=== PATIENT | female | born 1950 | race Hispanic/Latino ===

== ENCOUNTER 2017-03-06 16:37 | Emergency (ER) | payer MEDICARE, OTHER ==
[~2017-03-06] VITALS: Ht 154.9 cm; Wt 81.6 kg
[~2017-03-06 16:37] MED LIST: LANTUS100 UNITS/ SQ; LEVOTHYROXINE50 MCG PO; METFORMIN HCL500 MG PO
[2017-03-06] MEDS ORDERED: ACETAMINOPHEN 325 MG TAB PO ONE (18:00)
--- NOTE | 2017-03-06 18:53 | Diagnostic Imaging Report ---
History:Fall Comparison studies:None Technique: Axial images were obtained from the skull base to the vertex. Coronal and sagittal images reconstructed from the axial data. Intravenous contrast: None Findings: Scalp/skull: No abnormalities. Extra-axial spaces: No masses. No fluid collections. Brain sulci: Mildly prominent. Ventricles: Mild compensatory dilatation. No hydrocephalus. Parenchyma: Few hypodensities in the supratentorial white matter are small vessel ischemic changes. No masses, hemorrhage, acute or chronic cortical vascular insults. Sellar/suprasellar region: No abnormalities. Craniocervical junction: Patent foramen magnum. No Chiari one malformation. Incidental findings: Atherosclerotic calcifications in the carotid siphons . Impression: No acute abnormalities. Chronic findings: 1. Mild generalized volume loss. 2. Mild supratentorial white matter small vessel ischemic changes. Signed by: DR Martinez Garcia M.D. on 03/06/2017 6:50 PM
--- NOTE | 2017-03-06 18:58 | Diagnostic Imaging Report ---
History:Fall Comparison studies: None Technique: Axial images were obtained through the maxillofacial region. Coronal and sagittal images reconstructed from the axial data. Intravenous contrast: None Findings: Soft tissues: No abnormalities. Bones: No fractures or bone abnormalities. Orbits: Globes: Intact Extra or intraconal abnormalities: None. Paranasal sinuses: Clear No dentition in the maxilla. Periapical lucency at dentition 21 and 22. IMPRESSION: 1. No acute abnormality Signed by: DR Martinez Garcia M.D. on 03/06/2017 6:55 PM
--- NOTE | 2017-03-06 19:02 | Diagnostic Imaging Report ---
History: Fall Comparison studies: None Technique: Axial images were obtained through the cervical region. Coronal and sagittal images reconstructed from the axial data. Intravenous contrast: None Findings: Atlantoaxial articulation: Intact Alignment: Normal lordosis No scoliosis. Cervicomedullary junction: No abnormalities. Patent foramen magnum. Soft tissues: No gross abnormalities. Vertebrae: No fractures, neoplasm or infection. Degenerative changes: Disc degeneration from C5-7. Facet and uncinate process hypertrophy result in mild multilevel foraminal narrowing. IMPRESSION: 1. No acute cervical abnormality. 2. Cannot exclude ligament, spinal cord and or vascular abnormalities on the basis of this examination. Signed by: DR Martinez Garcia M.D. on 03/06/2017 6:58 PM
--- NOTE | 2017-03-06 19:41 | Diagnostic Imaging Report ---
KNEE RIGHT THREE VIEWS KNEE LEFT THREE VIEWS HISTORY: Knee pain status post fall COMPARISON: None FINDINGS: Bones: No displaced fracture. Osseous alignment is within normal limits. Joints: The joint spaces are well-maintained. Soft tissues: The soft tissues appear unremarkable. IMPRESSION: No acute radiographic abnormality. Signed by: Dr. Alfa Patel M.D. on 03/06/2017 7:37 PM
--- NOTE | 2017-03-06 19:49 | Diagnostic Imaging Report ---
RIBS UNILAT W/CXR HISTORY: Left rib pain status post fall COMPARISON: None FINDINGS: Bones: No displaced fracture. Osseous alignment is within normal limits. Joints: The joint spaces are well-maintained. Soft tissues: The soft tissues appear unremarkable. IMPRESSION: No acute radiographic abnormality. Signed by: Dr. Alfa Patel M.D. on 03/06/2017 7:45 PM
== END 2017-03-06 21:02 | disposition home or self-care (01) ==
LOC: ER 16:37
DX: S00.532A Contusion of oral cavity, initial encounter (principal); S00.83XA Contusion of other part of head, initial encounter; S20.212A Contusion of left front wall of thorax, initial encounter; S80.02XA Contusion of left knee, initial encounter; S80.01XA Contusion of right knee, initial encounter; W01.0XXA Fall on same level from slipping, tripping and stumbling without subsequent striking against object, initial encounter; Y92.481 Parking lot as the place of occurrence of the external cause; I10 Essential (primary) hypertension; E11.9 Type 2 diabetes mellitus without complications; E03.9 Hypothyroidism, unspecified
CPT/HCPCS: 70450; 70486; 71101; 72125; 99283

== ENCOUNTER 2018-01-06 20:24 | Emergency (ER) | payer MEDICARE ==
[~2018-01-06] VITALS: Ht 154.9 cm; Wt 81.6 kg
--- OUTSIDE RECORDS SUMMARY | 2018-01-06 20:26 | XMS REPORT ---
Author Author [facility] Address Unknown Phone Unavailable Care Team Providers Care Chain Saw Operator Name Role Phone Lynn POSEY Unavailable Unavailable Problems This patient has no known problems. Allergies, Adverse Reactions, Alerts This patient has no known allergies or adverse reactions. Medications This patient has no known medications. Encounters Start Date/Time End Date/Time Encounter Type Admission Type Attending Clinicians Care Facility Care Department Encounter ID 2017-11-08 12:41:24 2017-11-08 12:41:24 Outpatient [facility] [id number] 2017-11-08 10:23:27 2017-11-08 10:23:27 Outpatient [facility] [id number] 2017-08-11 08:26:29 2017-08-11 08:26:29 Outpatient [facility] [id number] 2017-07-22 00:00:00 2017-07-22 00:00:00 Outpatient [facility] [id number] 2017-07-16 11:36:36 2017-07-16 11:36:36 Outpatient [facility] [id number] 2017-07-16 09:47:55 2017-07-16 09:47:55 Outpatient [facility] [id number] 2017-06-18 09:40:37 2017-06-18 09:40:37 Outpatient [facility] [id number] 2017-05-26 15:28:08 2017-05-26 15:28:08 Outpatient [facility] [id number] 2017-04-20 14:10:58 2017-04-20 14:10:58 Outpatient [facility] [id number] 2017-04-20 09:51:03 2017-04-20 09:51:03 Outpatient [facility] [id number] 2017-04-12 09:22:48 2017-04-12 09:22:48 Outpatient [facility] [id number] 2017-03-22 00:00:00 2017-03-22 00:00:00 Outpatient [facility] [id number] 2017-02-18 09:30:12 2017-02-18 09:30:12 Outpatient [facility] [id number] 2017-02-16 10:10:56 2017-02-16 10:10:56 Outpatient [facility] [id number] 2016-12-11 09:37:19 2016-12-11 09:37:19 Outpatient [facility] [id number] 2016-11-13 14:43:13 2016-11-13 14:43:13 Outpatient [facility] [id number] 2016-09-28 15:51:36 2016-09-28 15:51:36 Outpatient [facility] [id number] Results Test Description Test Time Test Comments Text Results Atomic Results Result Comments CT CERVICAL SPINE WO [place] [address] Patient Name: JOS AYALA MR #: [id number] : 1950 Age/Sex: 67/F Req #: [id number] Adm Physician: Ordered by: SHANT TIM Report #: [id number] Location: ER Room/Bed: Procedure: [id number] CT/CT CERVICAL SPINE WO Exam Date: 03/06/17 Exam Time: 1843 REPORT STATUS: Signed History: Fall Comparison studies: None Technique: Axial images were obtained through the cervical region. Coronal and sagittal images reconstructed from the axial data. Intravenous contrast: None Findings: Atlantoaxial articulation: Intact Alignment: Normal lordosis No scoliosis. Cervicomedullary junction: No abnormalities. Patent foramen magnum. Soft tissues: No gross abnormalities. Vertebrae: No fractures, neoplasm or infection. Degenerative changes: Disc degeneration from C5-7. Facet and uncinate process hypertrophy result in mild multilevel foraminal narrowing. IMPRESSION: 1. No acute cervical abnormality. 2. Cannot exclude ligament, spinal cord and or vascular abnormalities on the basis of this examination. Signed by: DR Martinez Garcia M.D. on 03/06/2017 6:58 PM Dictated By: MARTINEZ HANKS MD 57 Transcribed By: TROY on 03/06/171857 COPY TO: SHANT TIM CT BRAIN WO [place] [address] Patient Name: JOS AYALA MR #: [id number] : 1950 Age/Sex: 67/F Req #: [id number] Adm Physician: Ordered by: SHANT TIM Report #: [id number] Location: ER Room/Bed: Procedure: [id number] CT/CT BRAIN WO Exam Date: 03/06/17 Exam Time: 1843 REPORT STATUS: Signed History:Fall Comparison studies:None Technique: Axial images were obtained from the skull base to the vertex. Coronal and sagittal images reconstructed from the axial data. Intravenous contrast: None Findings: Scalp/skull: No abnormalities. Extra-axial spaces: No masses. No fluid collections. Brain sulci: Mildly prominent. Ventricles: Mild compensatory dilatation. No hydrocephalus. Parenchyma: Few hypodensities in the supratentorial white matter are small vessel ischemic changes. No masses, hemorrhage, acute or chronic cortical vascular insults. Sellar/suprasellar region: No abnormalities. Craniocervical junction: Patent foramen magnum. No Chiari one malformation. Incidental findings: Atherosclerotic calcifications in the carotid siphons . Impression: No acute abnormalities. Chronic findings: 1. Mild generalized volume loss. 2. Mild supratentorial white matter small vessel ischemic changes. Signed by: DR Martinez Garcia M.D. on 03/06/2017 6:50 PM Dictated By: MARTINEZ HANKS MD 49 Transcribed By: TROY on 03/06/171849 COPY TO: SHANT TIM CT MAXIO FAC/PARANAS WO [place] [address] Patient Name: JOS AYALA MR #: [id number] : 1950 Age/Sex: 67/F Req #: [id number] Adm Physician: Ordered by: SHANT TIM Report #: [id number] Location: ER Room/Bed: Procedure: [id number] CT/CT MAXIO FAC/PARANAS WO Exam Date: 03/06/17 Exam Time: 1843 REPORT STATUS: Signed History:Fall Comparison studies: None Technique: Axial images were obtained through the maxillofacial region. Coronal and sagittal images reconstructed from the axial data. Intravenous contrast: None Findings: Soft tissues: No abnormalities. Bones: No fractures or bone abnormalities. Orbits: Globes: Intact Extra or intraconal abnormalities: None. Paranasal sinuses: Clear No dentition in the maxilla. Periapical lucency at dentition 21 and 22. IMPRESSION: 1. No acute abnormality Signed by: DR Martinez Garcia M.D. on 03/06/2017 6:55 PM Dictated By: MARTINEZ HANKS MD 54 Transcribed By: TROY on 03/06/171854 COPY TO: SHANT TIM KNEE LEFT THREE VIEWS [place] [id number] [place] [address] Patient Name: JOS AYALA MR #: [id number] : 1950 Age/Sex: 67/F Req #: [id number] Adm Physician: Ordered by: SHANT TIM Report #: [id number] Location: ER Room/Bed: Procedure: [id number] DX/KNEE LEFT THREE VIEWS Exam Date: 03/06/17 Exam Time: 1849 REPORT STATUS: Signed KNEE RIGHT THREE VIEWS KNEE LEFT THREE VIEWS HISTORY: Knee pain status post fall COMPARISON: None FINDINGS: Bones: No displaced fracture. Osseous alignment is within normal limits. Joints: The joint spaces are well-maintained. Soft tissues: The soft tissues appear unremarkable. IMPRESSION: No acute radiographic abnormality. Signed by: Dr. Alfa Patel M.D. on 03/06/2017 7:37 PM Dictated By: ALFA SRINIVASAN MD 36 Transcribed By: TROY on 03/06/171936 COPY TO: SHANT TIM KNEE RIGHT THREE VIEWS [place] [address] Patient Name: JOS AYALA MR #: [id number] : 1950 Age/Sex: 67/F Req #: [id number] Adm Physician: Ordered by: SHANT TIM Report #: [id number] Location: ER Room/Bed: Procedure: [id number] DX/KNEE RIGHT THREE VIEWS Exam Date: 03/06/17 Exam Time: 1850 REPORT STATUS: Signed KNEE RIGHT THREE VIEWS KNEE LEFT THREE VIEWS HISTORY: Knee pain status post fall COMPARISON: None FINDINGS: Bones: No displaced fracture. Osseous alignment is within normal limits. Joints: The joint spaces are well-maintained. Soft tissues: The soft tissues appear unremarkable. IMPRESSION: No acute radiographic abnormality. Signed by: Dr. Alfa Patel M.D. on 03/06/2017 7:37 PM Dictated By: ALFA SRINIVASAN MD 36 Transcribed By: TROY on 03/06/171936 COPY TO: SHANT TIM W/CXR [place] [address] Patient Name: JOS AYALA MR #: [id number] : 1950 Age/Sex: 67/F Req #: [id number] Adm Physician: Ordered by: SHANT TIM Report #: [id number] Location: ER Room/Bed: Procedure: [id number] DX/RIBS UNILAT W/CXR Exam Date: 03/06/17 Exam Time: 1850 REPORT STATUS: Signed RIBS UNILAT W/CXR HISTORY: Left rib pain status post fall COMPARISON: None FINDINGS: Bones: No displaced fracture. Osseous alignment is within normal limits. Joints: The joint spaces are well-maintained. Soft tissues: The soft tissues appear unremarkable. IMPRESSION: No acute radiographic abnormality. Signed by: Dr. Alfa Patel M.D. on 03/06/2017 7:45 PM Dictated By: ALFA SRINIVASAN MD 44 Transcribed By: TROY on 03/06/171944 COPY TO: SHANT TIM
--- NOTE | 2018-01-06 21:58 | Diagnostic Imaging Report ---
EXAMINATION: Head CT without contrast. HISTORY:Headache. COMPARISON:CT brain from 03/06/2017. TECHNIQUE: Multidetector axial images were obtained from the foramen magnum to the vertex without contrast. The images were reconstructed using brain and bone algorithms. Thin section brain images were reformatted into coronal and sagittal planes. Dose modulation, iterative reconstruction, and/or weight based adjustment of the mA/kV was utilized to reduce the radiation dose to as low as reasonably achievable. Intravenous contrast: None IMAGE QUALITY: Acceptable. FINDINGS: Skull/scalp: No lytic or blastic. lesions. No surgical changes. Parenchyma: Nonspecific few, scattered supratentorial white matter hypodensity are likely related to small vessel ischemic changes. No acute hemorrhage, mass or acute major vascular territorial infarct. Arteries: No density suggestive of thrombosis. Mild atherosclerotic calcification in bilateral carotid siphon. Dural sinuses: No abnormal density suggestive of thrombosis. Ventricles: No hydrocephalus or displacement. Extra-axial spaces: No abnormal density. Brain volume: Mild generalized cerebral volume loss. Craniocervical junction: No mass, Chiari malformation, or basilar invagination. Sella: No mass. Paranasal/mastoid sinuses: Imaged portions unremarkable. IMPRESSION: No acute intracranial abnormality. No change since CT brain from 03/06/2017. Chronic findings: 1. Mild supratentorial white matter microvascular ischemic changes. 2. Mild generalized cerebral volume loss. Signed by: Dr. Clotilde Castellanos M.D. on 01/06/2018 9:55 PM
--- NOTE | 2018-01-06 22:03 | Diagnostic Imaging Report ---
History: Neck pain. Comparison studies: CT cervical spine from 03/06/2017. Technique: Axial images were obtained through the cervical region.. Coronal and sagittal images reconstructed from the axial data. Dose modulation, iterative reconstruction, and/or weight based adjustment of the mA/kV was utilized to reduce the radiation dose to as low as reasonably achievable. Intravenous contrast: None Findings: Fractures: None. Soft tissue injuries: None. Atlantoaxial articulation: Intact. Alignment: Loss of normal cervical lordosis is either positional or due to muscle spasm. No scoliosis. 2 mm grade 1 retrolisthesis at C5-C6, is likely degenerative. Cervicomedullary junction: No abnormalities. The foramen magnum is patent. Soft tissues: No abnormalities. Vertebrae: No fractures, infection or neoplasm. Degenerative changes: C3-C4: Mild degenerative disc disease. Mild left foraminal stenosis due to facet and uncovertebral arthrosis. C4-C5: Posterior disc osteophyte complex results in mild canal stenosis. Mild left foraminal stenosis due to facet and uncovertebral arthrosis. C5-C6: Moderate degenerative disc disease. Posterior disc osteophyte complex results in mild canal stenosis. Mild bilateral foraminal stenosis due to facet and uncovertebral arthrosis.. IMPRESSION: 1. No acute cervical spine fracture. Loss of normal cervical lordosis is either positional or due to muscle spasm. 2. Ligament, spinal cord and or vascular abnormalities cannot be excluded on the basis of this examination. 3. Cervical spondylosis as detailed above. Signed by: Dr. Clotilde Castellanos M.D. on 01/06/2018 10:00 PM
== END 2018-01-06 22:43 | disposition home or self-care (01) ==
LOC: ER 20:24
DX: M54.2 Cervicalgia (principal); S16.1XXA Strain of muscle, fascia and tendon at neck level, initial encounter; I10 Essential (primary) hypertension; E11.9 Type 2 diabetes mellitus without complications; E78.5 Hyperlipidemia, unspecified; G89.29 Other chronic pain
CPT/HCPCS: 70450; 72125; 99283

== ENCOUNTER 2018-10-31 13:12 | Emergency (ER) | payer MEDICARE ==
[~2018-10-31] VITALS: Ht 154.9 cm; Wt 81.6 kg
--- OUTSIDE RECORDS SUMMARY | 2018-10-31 13:17 | XMS REPORT | Clinical Summary ---
Author Author [facility] Organization [facility] Address Unknown Phone Unavailable Care Team Providers Care Campaign Worker Name Role Phone Nelia Manley MD PCP Allergies No Known Allergies Medications End Date Status Medication Sig Dispensed Refills Start Date Active nitroGLYCERIN (NITROSTAT) Dissolve 1 25 tablet 3 0.4 mg sublingual tablet under 5 tabletIndications: HTN the tongue (hypertension), benign every 5 minutes as needed, up to 3 times. If chest pain persists, call 911. Active blood glucose by 1 Kit 0 meterIndications: MISCELLANEOUS 7 Uncontrolled type 2 route 2 times diabetes mellitus without weekly Use as complication, with directed.-one long-term current use of touch verio insulin glucometer. Active mometasone (NASONEX) 50 2 Sprays by 17 g 2 mcg/actuation nasal each nostril 7 sprayIndications: Upper route daily. respiratory infection with cough and congestion Active ketoconazole (NIZORAL) 2 Apply to 30 g 0 % topical affected area 8 creamIndications: Skin daily. rash Active albuterol 90 Inhale 2 6.7 g 11 mcg/actuation Puffs by 9 inhalerIndications: mouth 4 times Environmental allergies daily as needed for Wheezing. Active dexlansoprazole Take 1 90 capsule 1 (DEXILANT) 30 mg delayed capsule by 9 release mouth daily. capsuleIndications: Gastroesophageal reflux disease without esophagitis Active INSULIN SYRINGE 0.5mL Use to inject 200 Each 6 30GX5/16" (MONOJECT medication 2 9 ULTRACOMFORT INSULIN SYR times daily. 0.5ML 30GX5/16") Use a new syringe-needleIndications syringe each : Controlled type 2 time. diabetes mellitus without complication, with long-term current use of insulin Active metFORMIN (GLUCOPHAGE) Take 1 tablet 180 tablet 1 500 mg tabletIndications: by mouth 2 9 Controlled type 2 times daily diabetes mellitus without (with meals). complication, with long-term current use of insulin Active hydroCHLOROthiazide Take 1/2 45 tablet 2 (HYDRODIURIL) 25 mg tablet by 9 tabletIndications: HTN mouth daily. (hypertension), benign Active insulin NPH 100 unit/mL Inject 25 60 mL 11 injectionIndications: units under 9 Controlled type 2 the skin in diabetes mellitus without the morning complication, with and 20 units long-term current use of in the insulin evening. Active insulin REGULAR 100 Inject 6 30 mL 6 unit/mL Units under 9 injectionIndications: the skin 2 Controlled type 2 times daily diabetes mellitus without (before complication, with meals). long-term current use of insulin Active ONETOUCH VERIO test USE 1 NEW 200 Each 4 stripsIndications: STRIP TO TEST 9 Controlled type 2 BLOOD SUGAR diabetes mellitus without TWICE DAILY complication, with long-term current use of insulin Active alendronate (FOSAMAX) 70 TAKE 1 TABLET 12 tablet 3 mg tabletIndications: BY MOUTH ONCE 9 Medication refill A WEEK Active lisinopril (PRINIVIL, TAKE 1 TABLET 90 tablet 3 ZESTRIL) 10 mg BY MOUTH ONCE 9 tabletIndications: HTN DAILY (hypertension), benign Active ONE TOUCH DELICA 33 gauge USE 1 NEW 200 Each 7 MiscIndications: LANCET TO 9 Controlled type 2 CHECK BLOOD diabetes mellitus without GLUCOSE TWO complication, with TIMES DAILY long-term current use of insulin Active simvastatin (ZOCOR) 20 mg TAKE 1 TABLET 90 tablet 1 tabletIndications: BY MOUTH AT 9 Hyperlipidemia, BEDTIME unspecified NIGHTLY hyperlipidemia type Active levothyroxine (SYNTHROID) Take 1 tablet 90 tablet 2 100 mcg by mouth 9 tabletIndications: daily. Hypothyroidism, unspecified type Active fluticasone propionate Use 2 Sprays 16 g 0 (FLONASE ALLERGY RELIEF) in each 9 50 mcg/actuation nasal nostril sprayIndications: Ear daily. congestion, bilateral Active loratadine (CLARITIN) 10 Take 1 tablet 30 tablet 0 mg tabletIndications: Ear by mouth 9 congestion, bilateral daily. Active ibuprofen (MOTRIN) 600 mg Take 1 tablet 30 tablet 0 tabletIndications: by mouth 9 Otalgia of right ear, every 8 hours Headache, unspecified as needed for headache type Pain. Active HYDROcodone-acetaminophen Take 1 tablet 0 (NORCO) 5-325 mg tablet by mouth every 6 hours as needed. 09/23/2018 Discontinued blood glucose meter Use as 1 Kit 0 (PRECISION directed. 2 XTRA)Indications: Diabetes mellitus, type 2 09/23/2018 Discontinued blood glucose Use as 1 Kit 0 meterIndications: directed. 3 Diabetes mellitus 09/23/2018 Discontinued ALCOHOL SWABS Apply to 100 Each 4 PadMIndications: Diabetes affected 3 mellitus area. 09/23/2018 Discontinued polyethylene glycol Mix 17 grams 255 g 0 (GLYCOLAX) 17 gram/dose into 4 to 8 7 oral powderIndications: ounces of Lower abdominal pain water, juice, soda, tea or coffee and drink as directed, one time a day. 03/11/2018 Discontinued albuterol (PROVENTIL HFA) Inhale 2 6.7 g 11 90 mcg/actuation Puffs by 7 inhalerIndications: mouth 4 times Environmental allergies daily as needed for Wheezing. 11/08/2017 Discontinued dexlansoprazole Take 1 90 capsule 1 (DEXILANT) 30 mg delayed capsule by 7 release mouth daily. capsuleIndications: Gastroesophageal reflux disease without esophagitis 01/28/2018 Discontinued levothyroxine (SYNTHROID) Take 1 tablet 90 tablet 2 100 mcg by mouth 8 tabletIndications: daily. Hypothyroidism, unspecified type 03/11/2018 Discontinued lisinopril (PRINIVIL, Take 1 tablet 90 tablet 3 ZESTRIL) 10 mg by mouth 8 tabletIndications: HTN daily. (hypertension), benign 03/11/2018 Discontinued alendronate (FOSAMAX) 70 Take 1 tablet 12 tablet 3 mg tabletIndications: by mouth 8 Medication refill weekly. 06/02/2018 Discontinued INSULIN SYRINGE 0.5mL Use to inject 200 Each 6 30GX5/16" (MONOJECT medication 2 8 ULTRACOMFORT INSULIN SYR times daily. 0.5ML 30GX5/16") Use a new syringe-needleIndications syringe each : Controlled type 2 time. diabetes mellitus without complication, with long-term current use of insulin 08/03/2018 Discontinued lancets 33 gauge Check blood 200 Each 3 MiscIndications: glucose 2 8 Controlled type 2 times daily. diabetes mellitus without complication, with long-term current use of insulin 11/08/2017 Discontinued insulin NPH (NOVOLIN N, Inject 25 60 mL 11 HUMULIN N) 100 unit/mL Units under 8 injectionIndications: the skin 2 Controlled type 2 times daily diabetes mellitus without (before complication, with meals) long-term current use of insulin 03/11/2018 Discontinued simvastatin (ZOCOR) 20 mg Take 1 tablet 90 tablet 1 tabletIndications: by mouth at 8 Hyperlipidemia, bedtime unspecified nightly. hyperlipidemia type 03/11/2018 Discontinued loratadine (CLARITIN) 10 Take 1 tablet 90 tablet 1 mg tabletIndications: by mouth 8 Environmental allergies daily. 03/11/2018 Discontinued hydroCHLOROthiazide Take 1/2 45 tablet 2 (HYDRODIURIL) 25 mg tablet by 8 tabletIndications: HTN mouth daily. (hypertension), benign 01/28/2018 Discontinued metFORMIN (GLUCOPHAGE) Take 2 360 tablet 1 500 mg tabletIndications: tablets by 8 Controlled type 2 mouth 2 times diabetes mellitus without daily (with complication, with meals). long-term current use of insulin 06/27/2018 Discontinued insulin REGULAR (NOVOLIN Inject 6 30 mL 6 R, HUMULIN R) 100 unit/mL Units under 8 injectionIndications: the skin 2 Controlled type 2 times daily diabetes mellitus without (before complication, with meals). long-term current use of insulin 08/03/2018 Discontinued blood glucose test 1 Each by 200 Each 4 stripsIndications: MISCELLANEOUS 8 Controlled type 2 route 2 times diabetes mellitus without daily One complication, with touch verio long-term current use of test strips. insulin 11/08/2017 Discontinued dexlansoprazole Take 1 90 capsule 1 (DEXILANT) 30 mg delayed capsule by 8 release mouth daily. capsuleIndications: Gastroesophageal reflux disease without esophagitis 06/27/2018 Discontinued insulin NPH 100 unit/mL Inject 25 60 mL 11 injectionIndications: units under 8 Controlled type 2 the skin in diabetes mellitus without the morning complication, with and 20 units long-term current use of in the insulin evening. 03/11/2018 Discontinued omeprazole (PRILOSEC) 20 Take 1 90 capsule 1 mg delayed release capsule by 8 capsuleIndications: mouth daily. Gastroesophageal reflux disease without esophagitis 06/27/2018 Discontinued metFORMIN (GLUCOPHAGE) Take 2 360 tablet 1 500 mg tabletIndications: tablets by 8 Controlled type 2 mouth 2 times diabetes mellitus without daily (with complication, with meals). long-term current use of insulin 09/23/2018 Discontinued levothyroxine (SYNTHROID) Take 1 tablet 90 tablet 2 100 mcg by mouth 8 tabletIndications: daily. Hypothyroidism, unspecified type 03/14/2018 Discontinued dexlansoprazole Take 1 90 capsule 1 (DEXILANT) 30 mg delayed capsule by 9 release mouth daily. capsuleIndications: Gastroesophageal reflux disease without esophagitis 09/07/2018 tropicamide (MYDRIACYL) Instill 1 15 mL 0 0.5 % ophthalmic Drop in each 9 solutionIndications: Type eye once as 2 diabetes mellitus with needed for up complication, unspecified to 1 dose whether fpc insulin (for poor use retina scan image). 08/03/2018 Discontinued simvastatin (ZOCOR) 20 mg Take 1 tablet 90 tablet 1 tabletIndications: by mouth at 9 Hyperlipidemia, bedtime unspecified nightly. hyperlipidemia type 08/03/2018 Discontinued lisinopril (PRINIVIL, Take 1 tablet 90 tablet 3 ZESTRIL) 10 mg by mouth 9 tabletIndications: HTN daily. (hypertension), benign 08/03/2018 Discontinued alendronate (FOSAMAX) 70 Take 1 tablet 12 tablet 3 mg tabletIndications: by mouth 9 Medication refill weekly. 09/23/2018 Discontinued ibuprofen (MOTRIN) 600 mg Take 1 tablet 30 tablet 0 tabletIndications: Bone by mouth 9 pain every 8 hours as needed for Pain. 10/20/2018 ofloxacin (FLOXIN) 0.3 % Instill 5 5 mL 0 otic solutionIndications: Drops in 9 Acute otitis externa of right ear 2 right ear, unspecified times daily type for 10 days. Active Problems Problem Noted Date Controlled type 2 diabetes mellitus without complication, with long-term 04/20/2017 current use of insulin Family history of breast cancer in mother; grandmothers ; 06/04/2015 Moderate episode of recurrent major depressive disorder 05/07/2015 Abnormal finding on imaging- upper GI - decreased peristalysis - dm vs 03/25/2015 collagen vas dz Non morbid obesity due to excess calories 11/27/2014 Lumbago 11/27/2014 Problem with transportation 11/27/2014 NS (nuclear sclerosis) 06/22/2014 Family history of breast cancer 03/27/2014 Retinopathy- abn scan 2014; needs rpt retinal scan 12/201402/09/2013 Hyperlipidemia 01/24/2013 GERD (gastroesophageal reflux disease)- as of 12/2014 requested upper GI X2 08/19/2012 Osteoporosis- on fosamax ; GI eval pending for gastritis 12/22/2011 Caregiver stress- 22yr daughter with down's syndrome; spouse not working 12/22/2011 Depression 11/27/2011 Diabetes mellitus -uncontrolled - since mar 2013- sep 2014 -pt does not 11/27/2011 prefer to be on insul Obesity- lost 10 lbs dec 2012- nov 2013 ;Obesity- exercising not much ; 11/27/2011 diet improved -off sodas/chips/fritos/salt/candies Anxiety state, unspecified 02/06/2011 HTN (hypertension), benign 02/01/2006 Hypercholesterolemia 12/04/2005 Hypothyroidism Chronic low back pain- DJD - L4-L5 S1 - no significant stenosis Encounters Care Team Description Date Type Specialty Jodie Calvillo NP Neck pain, acute, left posterior (Primary Dx) 10/26/2018 [facility] Joana Alaniz NP Acute otitis externa of right ear, unspecified type (Primary Dx); Otalgia of right ear; Headache, unspecified headache type; Ear congestion, bilateral; Encounter for diabetic foot exam 10/10/2018 [facility] Lashell Jensen MD Wasko, Carina A, MD Skin lesion of hand 10/05/2018 Office Visit Dermatology 10/05/2018 Travel Nelia Manley MD Follow-up 09/25/2018 Telephone [facility] Nelia Manley MD Controlled type 2 diabetes mellitus without complication, with long-term current use of insulin (Primary Dx); Dietary counseling for Above / Below Normal BMI; Exercise counseling for Above Normal BMI Only!; Hypothyroidism, unspecified type 09/23/2018 Office Visit [facility] Nelia King MD 09/21/2018 Ancillary Radiology Procedure 09/21/2018 Travel Kimberly Lomeli, TALA Consult (outside referral) 08/18/2018 Telephone [facility] Lashell Jensen MD Medication refill; HTN (hypertension), benign; Hyperlipidemia, unspecified hyperlipidemia type 08/03/2018 Refill [facility] Nelia Manley MD Controlled type 2 diabetes mellitus without complication, with long-term current use of insulin 08/03/2018 Refill [facility] Lashell Jensen MD Breast cancer screening 07/04/2018 Ancillary Radiology Procedure Lashell Jensen MD Screen for colon cancer 07/04/2018 Orders Only [facility] Komal Cr 07/04/2018 Clinical Case Social Work Mgt Lashell Jensen MD Senile osteoporosis 07/01/2018 Hospital Radiology Encounter 07/01/2018 Travel Lashell Jensen MD Preventative health care; Controlled type 2 diabetes mellitus without complication, with long-term current use of insulin; Polyarthralgia 06/27/2018 Lab Appointment Lab Lashell Jensen MD Bone pain (Primary Dx); Controlled type 2 diabetes mellitus without complication, with long-term current use of insulin; Screen for colon cancer; Breast cancer screening; Preventative health care; Senile osteoporosis; Skin lesion of hand; HTN (hypertension), benign; Polyarthralgia 06/27/2018 Office Visit [facility] Lashell Jensen MD Skin lesion of hand 06/27/2018 Orders Only [facility] Cody Bui, OD Lashell Jensen MD Mild nonproliferative diabetic retinopathy of both eyes without macular edema associated with type 2 diabetes mellitus (Primary Dx); Combined forms of age-related cataract of both eyes; Hyperopia of both eyes with astigmatism and presbyopia; Dry eye syndrome of both eyes 06/09/2018 Office Visit Ophthalmology 06/09/2018 Travel Nelia Manley MD Controlled type 2 diabetes mellitus without complication, with long-term current use of insulin 06/02/2018 Refill Family Practice Nelia Manley MD Chronic low back pain, unspecified back pain laterality, with sciatica presence unspecified (Primary Dx) 04/04/2018 Orders Only [facility] Lashell Jensen MD Abnormal eye finding 03/14/2018 Orders Only [facility] Lashell Jensen MD Results 03/14/2018 Telephone [facility] Lashell Jensen MD Type 2 diabetes mellitus with complication, unspecified whether fpc insulin use; HTN (hypertension), benign; Hyperlipidemia, unspecified hyperlipidemia type 03/11/2018 Lab Appointment Lab Lashell Jensen MD Type 2 diabetes mellitus with complication, unspecified whether buttermaker helper insulin use 03/11/2018 Ancillary Ophthalmology Procedure Lashell Jensen MD Type 2 diabetes mellitus with complication, unspecified whether fpc insulin use (Primary Dx); HTN (hypertension), benign; Hyperlipidemia, unspecified hyperlipidemia type; Medication refill; Environmental allergies; Examination of eyes and vision; Ingrown toenail of right foot 03/11/2018 Office Visit [facility] Lashell Jensen MD Examination of eyes and vision 03/11/2018 Orders Only [facility] Kimberly Lomeli RN 03/11/2018 Nurse Only Nelia Manley MD Gastroesophageal reflux disease without esophagitis 03/11/2018 Refill [facility] 03/11/2018 Travel Ana Cristina Yu RN Gastroesophageal reflux disease without esophagitis 03/08/2018 Refill [facility] Nelia Manley MD Controlled type 2 diabetes mellitus without complication, with long-term current use of insulin; Hypothyroidism, unspecified type 01/28/2018 Refill [facility] Nelia Manley MD Tenosynovitis of left wrist (Primary Dx); Pain in joint of right shoulder; Gastroesophageal reflux disease without esophagitis; Controlled type 2 diabetes mellitus without complication, with long-term current use of insulin; Hypothyroidism, unspecified type; Dietary counseling for Above / Below Normal BMI; Exercise counseling for Above Normal BMI Only! 11/08/2017 Office Visit Family Practice after 10/30/2017 Immunizations Name Administration Dates Next Due Herpes Zoster Vaccine In 10/25/2014 (Deferred: Patient Refused) Clinic Influenza <Unspecified> 11/09/2017, 01/29/2017 Influenza Vaccine 12/23/2015, 03/27/2014, 12/11/2011, 01/14/2011, 12/04/2006 02/05/2010, 01/26/2007, 12/04/2005 Influenza Vaccine, 02/18/2017 (Deferred: Patient already had this Seasonal, Injectable immunization) PCV 13 (Pnuemococcal 01/29/2017 Conjugated 13 Valent) PNEUMOCOCCAL 23-VALPS 07/16/2017 VACCINE 25 MCG/0.5 ML INJECTION PPV 23 Pneumococcal 12/16/2006 Polysaccaride Pneumococcal 13-valent 12/23/2015 conj 0.5 mL injection Td <Unspecified> 01/29/2017 Td Tetanus, diphtheria 12/16/2006 Toxoids Vaccine Tropicamide 0.5% Eye-Dolores 03/11/2018 15ml Family History Medical History Relation Name Comments Cancer Father tumor in head Breast cancer Maternal Aunt Cancer Maternal Aunt Breast cancer Maternal Grandfather Cancer Maternal stomach Grandfather Cancer Maternal breast Grandmother Hypertension Maternal Grandmother Arthritis Mother Breast cancer Mother Cancer Mother Diabetes Mother Hypertension Mother Hypothyroid Mother Relation Name Status Comments Brother Alive Brother Alive Brother Alive Daughter Alive Daughter Alive Daughter Alive Daughter Alive Father Maternal Aunt Maternal Grandfather Maternal Grandmother Mother Paternal Grandfather Paternal Grandmother Sister Alive Sister Alive Sister Alive Son Alive Son Alive Social History Date Tobacco Use Types Packs/Day Years Used Never Smoker Smokeless Tobacco: Never Used Tobacco Cessation: Counseling Given: No Drinks/Week oz/Week Comments Alcohol Use No Food Insecurity Answer Date Recorded Within the past 12 months, you worried that your Never true 11/08/2017 food would run out before you got money to buy more. Within the past 12 months, the food you bought Never true 11/08/2017 just didn't last and you didn't have money to get more. Sex Assigned at Date Recorded Not on file Industry Job Start Date Occupation Not on file Not on file Not on file Travel End Travel History Travel Start No recent travel history available. Last Filed Vital Signs Reading Time Taken Comments Vital Sign 142/68 10/26/2018 1:28 PM CDT Blood Pressure 87 10/26/2018 1:28 PM CDT Pulse 36.7 C (98.1 F) 10/26/2018 1:28 PM CDT Temperature 20 10/26/2018 1:28 PM CDT Respiratory Rate 98% 10/26/2018 1:28 PM CDT Oxygen Saturation - - Inhaled Oxygen Concentration 84.6 kg (186 lb 6.4 oz) 10/26/2018 1:28 PM CDT Weight 152.4 cm (5') 06/27/2018 2:21 PM CDT Height 36.4 06/27/2018 2:21 PM CDT Body Mass Index Plan of Treatment Care Team Description Date Type Specialty Nelia Manley MD [address] [place], [place] [id number] [phone] General f/u 12/19/2018 Office Visit Family [facility] Health Maintenance Due Date Last Done Comments DM Retinal Exam (Yearly) 06/10/2019 06/09/2018, 03/11/2018, 02/16/2017, Additional history exists Colorectal Cancer Scrn 07/05/2019 07/04/2018, 05/26/2017, 03/13/2016, Annual (FIT/FOBT) Age 51 Additional history exists to 76 Breast Cancer Scrn 09/22/2019 09/21/2018, 08/11/2017, 07/10/2016, (Yearly) Additional history exists DM HGBA1C (Yearly) 09/24/2019 09/23/2018, 06/27/2018, 03/11/2018, Additional history exists DM Foot Exam (Yearly) 10/11/2019 10/10/2018, 11/08/2017, 09/28/2016, Additional history exists IMM Pneumococcal Age 66 Completed 07/16/2017 and Up Procedures Comments Procedure Name Priority Date/Time Associated Diagnosis DIABETIC FOOT EXAM Routine 10/10/2018 Encounter for diabetic 10:26 AM CDT foot exam MICROALBUMIN / CREATININE Routine 09/23/2018 Controlled type 2 URINE RATIO 12:03 PM CDT diabetes mellitus without complication, with long-term current use of insulin LIPID PROFILE Routine 09/23/2018 Controlled type 2 12:03 PM CDT diabetes mellitus without complication, with long-term current use of insulin HEMOGLOBIN A1C Routine 09/23/2018 Controlled type 2 12:03 PM CDT diabetes mellitus without complication, with long-term current use of insulin MAMMOGRAM BILAT SCREEN Routine 09/21/2018 Breast cancer screening DIGITAL 12:12 PM CDT FECAL OCCULT BLOOD Routine 07/04/2018 Screen for colon cancer 3:51 PM CDT BONE DENSITY (DUAL Routine 07/01/2018 Senile osteoporosis PHOTON) 10:30 AM CDT CCP IGG ABS Routine 06/27/2018 Polyarthralgia 3:03 PM CDT RA FACTOR Routine 06/27/2018 Polyarthralgia 3:03 PM CDT C-REACTIVE PROTEIN HIGH Routine 06/27/2018 Polyarthralgia SENSITIVITY (CRP-HS) 3:03 PM CDT SED RATE Routine 06/27/2018 Polyarthralgia 3:03 PM CDT HEMOGLOBIN A1C Routine 06/27/2018 Controlled type 2 3:03 PM CDT diabetes mellitus without complication, with long-term current use of insulin CBC/DIFF Routine 06/27/2018 Preventative health care 3:03 PM CDT BASIC METABOLIC PANEL Routine 06/27/2018 Preventative health care 3:03 PM CDT THYROID STIMULATING Routine 06/27/2018 Preventative health care HORMONE (TSH) 3:03 PM CDT LIVER PROFILE Routine 06/27/2018 Preventative health care 3:03 PM CDT VIT D, 25-HYDROXY Routine 06/27/2018 Bone pain 3:03 PM CDT OPHTHALMOLOGY RETINAL Routine 03/11/2018 Type 2 diabetes mellitus SCAN 1:02 PM [employer] with complication, unspecified whether fpc insulin use FREE T4 Routine 03/11/2018 Type 2 diabetes mellitus 12:04 PM [employer] with complication, unspecified whether fpc insulin use THYROID STIMULATING Routine 03/11/2018 Type 2 diabetes mellitus HORMONE (TSH) 12:04 PM [employer] with complication, unspecified whether buttermaker helper insulin use LIVER PROFILE Routine 03/11/2018 Hyperlipidemia, 12:04 PM [employer] unspecified hyperlipidemia type BASIC METABOLIC PANEL Routine 03/11/2018 HTN (hypertension), 12:04 PM [employer] benign CBC/DIFF Routine 03/11/2018 Type 2 diabetes mellitus 12:04 PM [employer] with complication, unspecified whether buttermaker helper insulin use HEMOGLOBIN A1C Routine 03/11/2018 Type 2 diabetes mellitus 12:04 PM [employer] with complication, unspecified whether buttermaker helper insulin use THYROID STIMULATING Routine 11/08/2017 Hypothyroidism, HORMONE (TSH) 12:36 PM CDT unspecified type HEMOGLOBIN A1C Routine 11/08/2017 Controlled type 2 12:36 PM CDT diabetes mellitus without complication, with long-term current use of insulin COMPREHENSIVE METABOLIC Routine 11/08/2017 Controlled type 2 PANEL 12:36 PM CDT diabetes mellitus without complication, with long-term current use of insulin DIABETIC FOOT EXAM Routine 11/08/2017 Controlled type 2 11:49 AM CDT diabetes mellitus without complication, with long-term current use of insulin after 10/30/2017 Results * DIABETIC FOOT EXAM (10/10/2018 10:26 AM CDT) Only the most recent of 2 results within the time period is included. Narrative Performed At Joana Alaniz NP 10/10/2018 10:38 AM Diabetic Foot Exam was performed at 10/10/2018 10:37 AM.Right foot sensation is normal, right foot pulses are normal, right foot appearance is normal.Left foot sensation is normal,left foot pulses are normal, left foot appearance is normal. * MICROALBUMIN / CREATININE URINE RATIO (09/23/2018 12:03 PM CDT) Microalbumin, <0.7 <30.0 mg/dL [facility] Creatinine, 24 20 - 320 mg/dL [facility] Urine <29.2 0.0 - 30.0 mg/g [facility] Microalbumin [facility] Specimen Urine - Voided, urine Performing Organization Address [facility] Phone Number [facility] [address] [place] [address] * HEMOGLOBIN A1C (09/23/2018 12:03 PM CDT) Only the most recent of 4 results within the time period is included. Hemoglobin A1c 6.8 (H) 4.3 - 6.1 % [facility] Estimated 148 (H) 70 - 110 mg/dL [facility] Average Glucose [facility] Specimen Blood Performing Organization Address [facility] Phone Number [facility] [address] [place] [address] * LIPID PROFILE (09/23/2018 12:03 PM CDT) Cholesterol 135.0 <=200.0 mg/dL [facility] Comment: [facility] Desirable: < 200.0 mg/dL Borderline: 200 - 240 mg/dL High Risk: > 240 mg/dL Triglyceride 162 (H) <150 mg/dL [facility] Comment: LABORATORY Normal: < 150.0 mg/dL Borderline: 150-199 mg/dL High: 200-499 mg/dL Very High: >=500 mg/dL HDL 49.0 See Reference Range [facility] Comment: Narrative. mg/dL LABORATORY Increased CHD Risk: < 40.0 mg/dL Decreased CHD Risk: > 60 mg/dL LDL 54 <100 mg/dL [facility] Comment: LABORATORY Optimal: < 100.0 mg/dL Near Optimal: 120-129 mg/dL Borderline: 130-159 mg/dL High: 160-189 mg/dL Very High: >=190 mg/dL Specimen Blood Narrative Performed At Patient is not fasting. For a triglyceride result greater than 440 mg/dL, [facility] consider re-testing when the patient is in a fasting state. Performing Organization Address [facility] Phone Number [facility] [address] [place] [address] * MAMMOGRAM BILAT SCREEN DIGITAL (09/21/2018 12:12 PM CDT) Specimen Impressions Performed At IMPRESSION: BENIGN SMS There is no mammographic evidence of malignancy. A 1 year screening mammogram is recommended. I have reviewed the study and agree with the findings in the report. This document has been electronically signed. [place] Justice/kj:09/21/2018 13:31:39 Pharmacy Technician Program Director: Ms. Shira Nicole RT(Mary Kate)(Jaqui), [facility] letter sent: Benign Exam Mammogram BI-RADS: 2 Benign G0202 z12.31 Narrative Performed At #[id number] - MAMMOGRAM BILAT SCREEN DIGITAL SMS BILATERAL DIGITAL SCREENING MAMMOGRAM WITH CAD: 09/21/2018 CLINICAL: Screening for malignancy. Comparison is made to exams dated:12/28/2012 [facility], 04/06/[facility], 07/30/2015, 07/10/2016, and 08/11/2017 [facility]. The tissue of both breasts is heterogeneously dense. This may lower the sensitivity of mammography. Current study was also evaluated with a Computer Aided Detection (CAD) system. There are benign calcifications in both breasts. No significant masses, calcifications, or other findings are seen in either breast. There has been no significant interval change. Procedure Note Interface, Rad/Mammog In - 09/21/2018 1:49 PM CDT #[id number] - MAMMOGRAM BILAT SCREEN DIGITAL BILATERAL DIGITAL SCREENING MAMMOGRAM WITH CAD: 09/21/2018 CLINICAL: Screening for malignancy. Comparison is made to exams dated: 12/28/2012 [facility], 04/06/2014 [facility], 07/30/2015, 07/10/2016, and 08/11/2017 [facility]. The tissue of both breasts is heterogeneously dense. This may lower the sensitivity of mammography. Current study was also evaluated with a Computer Aided Detection (CAD) system. There are benign calcifications in both breasts. No significant masses, calcifications, or other findings are seen in either breast. There has been no significant interval change. IMPRESSION IMPRESSION: BENIGN There is no mammographic evidence of malignancy. A 1 year screening mammogram is recommended. I have reviewed the study and agree with the findings in the report. This document has been electronically signed. [place] Guillermo M.D./kj:09/21/2018 13:31:39 Pharmacy Technician Program Director: Ms. Shira Nicole RT(R)(M), [facility] letter sent: Benign Exam Mammogram BI-RADS: 2 Benign G0202 z12.31 Performing Organization Address City/State/Zipcode Phone Number SMS * OCCULT BLOOD ICT (07/04/2018 3:51 PM CDT) Occult Blood Negative [facility] ICT Specimen Stool Performing Organization Address City/State/Zipcode Phone Number [facility] * BONE DENSITY (DUAL PHOTON) (07/01/2018 10:30 AM CDT) Specimen Impressions Performed At IMPRESSION: SMS 1. Osteopenia in the lumbar spine and left formal neck with increased fracture risk. 2. Slight Interval increased bone mineral density changes of5.9% and 8.9% in the lumbar spine and left total hip respectively. Dictated By: Akin Flanagan MD, 07/01/2018 10:52 AM I have reviewed the study and agree with the findings in this report. Signed By: Kristie Day MD, 07/01/2018 11:46 AM Narrative Performed At EXAM: DEXA SMS DATE: 07/01/2018 10:36 AM INDICATION: Osteopenia for followup. COMPARISON: DEXA scan on 12/07/2011. TECHNIQUE: The patient underwent bone mineral densitometry using [employer] SL dual energy x-ray absorptiometry (DEXA).T-score is to compare the female peak bone mineral density (BMD). WHO definition of osteoporosis is T<-2.5 and osteopenia is T <-1.0. FINDINGS: Region..............BMD.......T score....%Change Spine L1-4....... 0.822 ....... -2 ....... 5.9, which is statistically significant Left Femoral Neck..... 0.638 ........ -1.9 .....n/a Total Hip.......... 0.934 ....... -0.1 ....... 8.9, which is statistically significant Procedure Note Interface, Rad/Mammog In - 07/01/2018 11:52 AM CDT EXAM: DEXA DATE: 07/01/2018 10:36 AM INDICATION: Osteopenia for followup. COMPARISON: DEXA scan on 12/07/2011. TECHNIQUE: The patient underwent bone mineral densitometry using [employer] SL dual energy x-ray absorptiometry (DEXA). T-score is to compare the female peak bone mineral density (BMD). WHO definition of osteoporosis is T<-2.5 and osteopenia is T <-1.0. FINDINGS: Region..............BMD.......T score....%Change Spine L1-4....... 0.822 ....... -2 ....... 5.9, which is statistically significant Left Femoral Neck..... 0.638 ........ -1.9 .....n/a Total Hip.......... 0.934 ....... -0.1 ....... 8.9, which is statistically significant IMPRESSION IMPRESSION: 1. Osteopenia in the lumbar spine and left formal neck with increased fracture risk. 2. Slight Interval increased bone mineral density changes of 5.9% and 8.9% in the lumbar spine and left total hip respectively. Dictated By: Akin Flanagan MD, 07/01/2018 10:52 AM I have reviewed the study and agree with the findings in this report. Signed By: Kristie Day MD, 07/01/2018 11:46 AM Performing Organization Address City/State/[facility] Phone Number SMS * VIT D, 25-HYDROXY (06/27/2018 3:03 PM CDT) Vit D, 33.6 30 - 100 ng/mL BT DI[facility] 25-Hydroxy Comment: IMMUNOLOGY Vitamin D deficiency has been defined by the [place] [employer] and Endocrine Society guideline as a level of serum 25-OH Vitamin D less than 20 ng/mL. The Endocrine Society further defines Vitamin D insufficiency as a level between 21 and 29 ng/mL and sufficiency as a level between 30 and 100 ng/mL. Specimen Performing Organization Address City/State/[facility] Phone Number [facility] IMMUNOLOGY * CCP IGG ABS (06/27/2018 3:03 PM CDT) CCP Abs IgG/IgA 12 LABORATORY Reference range: 0 to 19 CORPORATION OF Unit: units RADHA (note) Negative <20 Weak - 39 Moderate [id number] - 59 Strong positive>59 Specimen Blood Performing Organization Address City/[facility] Phone Number [facility] OF [address] [place] [id number] RADHA 145 * CRP, HIGH SENS (06/27/2018 3:03 PM CDT) Pathologist [facility] CRP, high sens 8.999 (H) <1.0 mg/dL BT MAIN-STATION 1 Specimen Blood Performing Organization Address [facility] Phone Number [facility] BT MAIN-STATION 1 * TSH (06/27/2018 3:03 PM CDT) Only the most recent of 3 results within the time period is included. Pathologist [facility] TSH 1.67 0.57 - 3.74 uIU/mL BT MAIN-STATION 1 Specimen Blood Performing Organization Address [facility] Phone Number [facility] BT MAIN-STATION 1 * SED RATE (06/27/2018 3:03 PM CDT) Pathologist [facility] Sed Rate 57 (H) <30 mm/Hr BT MAIN-STATION 3 Specimen Blood Performing Organization Address [facility] Phone Number [facility] BT MAIN-STATION 3 * RA FACTOR (06/27/2018 3:03 PM CDT) Pathologist [facility] RA Factor <10 <14 IU/mL BT MAIN-STATION 1 Specimen Blood Performing Organization Address [facility] Phone Number [facility] BT MAIN-STATION 1 * LIVER PROFILE (06/27/2018 3:03 PM CDT) Only the most recent of 2 results within the time period is included. Pathologist [facility] Protein, Total, 7.2 6.0 - 8.3 g/dL BT MAIN-STATION Serum 1 Albumin 4.3 3.7 - 5.3 g/dL BT MAIN-STATION 1 Bilirubin, 0.2 0.2 - 1.2 mg/dL BT MAIN-STATION Total 1 Alkaline 72 34 - 104 U/L BT MAIN-STATION Phosphatase, S 1 AST (SGOT) 14 13 - 39 U/L BT MAIN-STATION 1 ALT 11 7 - 52 U/L BT MAIN-STATION 1 D Bilirubin 0.1 0.0 - 0.2 mg/dL BT MAIN-STATION 1 Specimen Blood Performing Organization Address City/State/Zipcode Phone Number [facility] BT MAIN-STATION 1 * CBC/DIFF (06/27/2018 3:03 PM CDT) Only the most recent of 2 results within the time period is included. WBC 11.2 (H) 4.5 - 11.0 K/uL BT MAIN-STATION 2 RBC 4.56 4.20 - 5.40 M/uL BT MAIN-STATION 2 Hemoglobin 11.6 (L) 12.0 - 16.0 g/dL BT MAIN-STATION 2 Hematocrit 39.8 37.0 - 47.0 % BT MAIN-STATION 2 MCV 87 82 - 92 fL BT MAIN-STATION 2 MCH 25.4 (L) 27.0 - 32.0 pg BT MAIN-STATION 2 MCHC 29.1 (L) 32.0 - 36.0 g/dL BT MAIN-STATION 2 RDW 48.9 (H) 36.4 - 46.3 fL BT MAIN-STATION 2 Platelets 372 150 - 400 K/uL BT MAIN-STATION 2 Mean Platelet 11.4 9.4 - 12.4 fL BT MAIN-STATION Volume 2 Percent NRBC 0.0 BT MAIN-STATION 2 Absolute NRBC 0.00 BT MAIN-STATION 2 Neutrophils 54.7 34.0 - 70.0 % BT MAIN-STATION 2 Lymphs 35.1 20.0 - 50.0 % BT MAIN-STATION 2 Monocytes 6.8 5.0 - 12.0 % BT MAIN-STATION 2 Eos 2.6 0.7 - 5.0 % BT MAIN-STATION 2 Basos 0.4 0.1 - 1.2 % BT MAIN-STATION 2 Immature 0.4 0.0 - 0.5 BT MAIN-STATION Granulocytes 2 Neutrophils 6.14 (H) 1.56 - 6.13 K/uL BT MAIN-STATION (Absolute) 2 Lymphs 3.94 (H) 1.18 - 3.74 K/uL BT MAIN-STATION (Absolute) 2 Monocytes(Absol 0.76 (H) 0.24 - 0.36 K/uL BT MAIN-STATION reginaldo) 2 Eos (Absolute) 0.29 0.04 - 0.36 K/uL BT MAIN-STATION 2 Baso (Absolute) 0.05 0.01 - 0.08 K/uL BT MAIN-STATION 2 Immature Grans 0.05 (H) 0.00 - 0.03 K/uL BT MAIN-STATION (Abs) 2 Specimen Blood Performing Organization Address [facility] Phone Number [facility] BT [facility]IN-ST[facility] 2 * BASIC METABOLIC PANEL (06/27/2018 3:03 PM CDT) Only the most recent of 2 results within the time period is included. CO2 25 21 - 31 mmol/L BT MAIN-STATION 1 Chloride 101 98 - 107 mmol/L BT MAIN-STATION 1 Potassium 4.1 3.5 - 5.1 mmol/L BT MAIN-STATION 1 Sodium 139 136 - 145 mmol/L BT MAIN-STATION 1 Glucose 77 70 - 110 mg/dL BT MAIN-STATION 1 BUN 13 7 - 25 mg/dL BT MAIN-STATION 1 Creatinine 0.50 (L) 0.6 - 1.2 mg/dL BT MAIN-STATION 1 Anion Gap 13 BT MAIN-STATION 1 Calcium 9.5 8.6 - 10.3 mg/dL BT MAIN-STATION 1 GFR, Estimated >60 mL/min/1.73 m2 BT MAIN-STATION 1 eGFR If Africn >60 mL/min/1.73 m2 BT MAIN-STATION Am 1 Specimen Blood Performing Organization Address [facility] Phone Number [facility] BT MAIN-STATION 1 * OPHTHALMOLOGY RETINAL SCAN (03/11/2018 1:02 PM GENERAL FOREM[employer]) RETINAL NORMAL IRIS SCAN-FINAL RESULT Right Diabetic None IRIS Retinopathy Right Macular None IRIS Edema Right Other None IRIS Suspected Conditions Right Image Gradeable Image IRIS Quality Left Diabetic None IRIS Retinopathy Left Macular None IRIS Edema Left Other Suspected Cataract IRIS Suspected Conditions Left Image Gradeable Image IRIS Quality Specimen Narrative Performed At Retinal Study Result for CELIA AYALA YOLANDA, ruth 68 y/o, F (: 1950, ) presented to [facility] on 03-11-2018 for a retinal imaging study of the left and right eyes. Based on the findings of the study, the following is recommended for CELIA AYALA Other Suspected Condition Found: Refer to [facility], next available appointment.For Follow-up at [facility]: The patient can be scheduled into any [facility] that has an open booking by calling the appointment center. Interpreting Provider's Comments:No comments provided Right Eye Findings: Normal Result.Negative for Diabetic Retinopathy. Left Eye Findings: Negative for Diabetic Retinopathy. Other: Suspected Cataract This result was electronically signed by Josh Danielle MD, , Taxonomy: [id number] on 03-11-2018 06:02:12 [facility] time. NOTE:Any pathology noted on this diabetic retinal evaluation should be confirmed by an appropriate ophthalmic examination. Performing Organization Address City/[facility]/Zipcode Phone Number IRIS * FREE T4 (03/11/2018 12:04 PM GENERAL FOREMAN) Free T4 1.21 (H) 0.61 - 1.18 ng/dl BT MAIN-STATION Comment: 1 females: 1st Trimester-0.52-1.10 ng/dL 2nd Trimester=0.45-0.99 ng/dL 3rd Trimester=0.48-0.95 ng/dL Specimen Blood Performing Organization Address [facility] Phone Number [facility] BT MAIN-STATION 1 * COMPREHENSIVE METABOLIC PANEL(DBIL NOT INCLUDED) (11/08/2017 12:36 PM CDT) Albumin 4.4 3.7 - 5.3 g/dL BT MAIN-STATION 1 Calcium 10.1 8.6 - 10.3 mg/dL BT MAIN-STATION 1 CO2 30 21 - 31 mmol/L BT MAIN-STATION 1 Chloride 95 (L) 98 - 107 mmol/L BT MAIN-STATION 1 Creatinine 0.50 (L) 0.6 - 1.2 mg/dL BT MAIN-STATION 1 Glucose 237 (H) 70 - 110 mg/dL BT MAIN-STATION 1 Alkaline 70 34 - 104 U/L BT MAIN-STATION Phosphatase, S 1 Potassium 3.8 3.5 - 5.1 mmol/L BT MAIN-STATION 1 Sodium 137 136 - 145 mmol/L BT MAIN-STATION 1 ALT 8 7 - 52 U/L BT MAIN-STATION 1 AST (SGOT) 10 (L) 13 - 39 U/L BT MAIN-STATION 1 BUN 12 7 - 25 mg/dL BT MAIN-STATION 1 Bilirubin, 0.4 0.2 - 1.2 mg/dL BT MAIN-STATION Total 1 Protein, Total, 7.5 6.0 - 8.3 g/dL BT MAIN-STATION Serum 1 GFR, Estimated >60 mL/min/1.73 m2 BT MAIN-STATION 1 eGFR If Africn >60 mL/min/1.73 m2 BT MAIN-STATION Am 1 Anion Gap 12 BT MAIN-STATION 1 Specimen Blood Performing Organization Address City/State/Zipcode Phone Number [facility] BT MAIN-STATION 1 after 10/30/2017 Insurance Type Payer Benefit Subscriber ID Effective Phone Address Plan / Dates Group [employer] MEDICARE COMPLETE [facility] xxxxxxxxx 2018-P [phone] [address] MEDICARE [address] [id number] [place] [address]
== END 2018-10-31 13:31 | disposition home or self-care (01) ==
LOC: ER 13:14
DX: B02.9 Zoster without complications (principal); I10 Essential (primary) hypertension; E11.9 Type 2 diabetes mellitus without complications; E78.5 Hyperlipidemia, unspecified; M54.9 Dorsalgia, unspecified; G89.29 Other chronic pain
CPT/HCPCS: 99283